=== PATIENT | male | born 1945 | race Caucasian/White ===

== ENCOUNTER → 2017-01-19 | Outpatient (CLI) | payer MEDICARE ==
[~2017-01-19] MED LIST: ACET-749 PO; ADVIN25/60 INH; ALLO300T2 PO; ASPI81TA28 PO; ATRIN INH; CALC600T9 PO; CARV25TA2 PO; CLC100 PO; CLOP1TAB15 PO; DTR5 PO; FRS/40 PO; GABA-113 PO; HYDR25TA4 PO; LINICRE TOP; LISI40TA PO; MCRK20 PO; MONT1TAB3 PO; NITR0.4S UT; OMEG10007 PO; OPTIRAY 320 IV PRN; SIMV40TA2 PO
--- NOTE | 2017-01-19 12:08 | DIAGNOSTIC IMAGING REPORT ---
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 COMPARISON STUDY: Abdominal CT dated 02/08/2016 and 01/07/2016. TECHNIQUE: Before and following the IV administration of 80 cc of Optiray 320, CT urogram of the abdomen and pelvis is performed from the lung bases to the proximal femora. Images are reviewed in the axial, sagittal, and coronal planes. IV contrast was administered without complication. CT DOSE: 2007.94 mGy.cm FINDINGS: Lung bases: The heart is normal in size and without pericardial effusion. The coronary arteries are densely calcified. Emphysema is observed. There is no airspace consolidation or pleural effusion. Foci of tree-in-bud nodularity are identified at the right lung base. There is a 10 mm right lower lobe pulmonary nodule seen on image #2 of the unenhanced series. A 3 mm nodule is seen at the left lung base on image #30. The left lower lobe nodule has been seen on prior studies. The right lower lobe nodule was not included on prior examinations. Liver: The contrast-enhanced liver is enlarged, measuring 20 cm in length. The liver demonstrates diffusely diminished attenuation consistent with hepatic steatosis. There is no intrahepatic biliary ductal dilatation. The hepatic veins and portal veins are patent. Gallbladder: Unremarkable. Spleen: Normal in size and attenuation. Pancreas: Unremarkable. Adrenal glands: A 2.1 cm right adrenal nodule meets CT criteria for a fat-containing adenoma. The left adrenal gland is normal in appearance. Kidneys and ureters: The right kidney and right ureter are surgically absent. The left kidney demonstrates mild cortical atrophy and is without hydronephrosis. The left kidney enhances and excretes homogeneously. There are no left renal calculi identified on the unenhanced images. There is a 1.6 cm indeterminant and partially exophytic lesion in the interpolar left kidney seen on image #192. This appears to demonstrate postcontrast enhancement. There is no evidence of urothelial lesion within the left renal pelvis or along the course of the left ureter. Abdominal vasculature: The abdominal aorta is normal in course and caliber noting advanced atherosclerotic calcification. Bowel: The small bowel and colon are normal in course and caliber. There is moderate colonic fecal retention. The appendix is well-visualized and normal. Peritoneum and retroperitoneum: There is no intraperitoneal free air or abdominal ascites. There is a 1.6 cm right retroperitoneal nodule seen on axial image #164. There is a small fat-containing umbilical hernia. Lymphadenopathy: None. Pelvic viscera: The bladder, prostate, and seminal vesicles are normal as imaged. There is a small fat-containing right inguinal hernia. Skeletal structures: The skeletal structures appear osteopenic. There is mild/moderate lumbosacral spondylosis. No lytic or blastic bony lesions are seen. IMPRESSION: 1. The right kidney and ureter are surgically absent. 2. There is an indeterminant 1.6 cm retroperitoneal nodule in the operative bed adjacent to the right adrenal gland. This was not seen previously and may represent postoperative change. A soft tissue implant is not excluded and attention at follow-up is recommended. 3. There is an indeterminant 1.6 cm cortical lesion in the left kidney which does not meet CT criteria for a simple cyst and appears to demonstrate postcontrast enhancement. The appearance is worrisome for neoplasm. At a minimum, attention at follow-up is recommended. Renal MRI could also be considered for further interrogation. 4. There is no evidence of urothelial lesion within the left renal pelvis, the left ureter, or the bladder. 5. Hepatomegaly and hepatic steatosis. 6. There is an indeterminant 10 mm right lower lobe pulmonary nodule. This was not included on prior abdominal CT scans. Follow-up with a chest CT is recommended for full assessment of the thorax. 7. Additional findings as above. Electronically signed by: Obdulio Whitt M.D. 01/19/2017 12:07 PM Dictated Date/Time: 01/19/2017 11:51 AM
== END | disposition home or self-care (01) ==
LOC: C.CTS 10:43
PROVIDERS: ATTEND Urology
DX: C67.9 Malignant neoplasm of bladder, unspecified (principal); C66.1 Malignant neoplasm of right ureter; Z90.5 Acquired absence of kidney; N28.9 Disorder of kidney and ureter, unspecified; R93.8 Abnormal findings on diagnostic imaging of other specified body structures; R16.0 Hepatomegaly, not elsewhere classified; K76.0 Fatty (change of) liver, not elsewhere classified; R91.1 Solitary pulmonary nodule

== ENCOUNTER → 2017-03-27 | Outpatient (CLI) | payer MEDICARE ==
[2017-03-27 11:24] LABS: BLOOD UREA NITROGEN 11 mg/dl (7-18); BUN/CREATININE RATIO 8.5 (10-20); CALCIUM 8.5 mg/dl (8.5-10.1); CARBON DIOXIDE 31 mmol/L (21-32); CHLORIDE 107 mmol/L (98-107); GLUCOSE 93 mg/dl (70-99); MAGNESIUM 2.2 mg/dl (1.8-2.4); SODIUM 144 mmol/L (136-145)
[2017-03-27 11:26] LABS: PHOSPHORUS 2.9 mg/dl (2.5-4.9)
[2017-03-27 12:44] LABS: BASO % 0.2 %; BASO ABS # 0.02 K/uL (0-0.2); COMPLETE YES; HEMATOCRIT 42.8 % (42-52); IG% 0.2 %; LYMPH % 24.9 %; MEAN CELL VOLUME 84.6 fL (80-100); MEAN CORPUSCULAR HEMOGLOBIN 29.1 pg (25-34); MEAN CORPUSCULAR HGB CONC 34.3 g/dl (32-36); MEAN PLATELET VOLUME 9.3 fL (7.4-10.4); NEUT % 66.7 %; PLATELET COUNT 195 K/uL (130-400); RED BLOOD COUNT 5.06 M/uL (4.7-6.1); WHITE BLOOD COUNT 8.04 K/uL (4.8-10.8)
[2017-03-27 12:46] LABS: URINE APPEARANCE CLEAR (CLEAR); URINE BILIRUBIN NEG (NEG); URINE COLOR YELLOW; URINE EPITHELIAL CELL AUTO 0-5 /lpf (0-5); URINE NITRITE NEG (NEG); URINE PH 7.5 (4.5-7.5); URINE SPECIFIC GRAVITY 1.012 (1.000-1.030); UROBILINOGEN NEG (NEG); ZZUR CULT IF INDIC CLEAN CATCH YES
--- NOTE | 2017-03-27 12:54 | DIAGNOSTIC IMAGING REPORT ---
CT UROGRAM CLINICAL HISTORY: Hematuria. 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 COMPARISON STUDY: Abdominal CT scans dated 01/19/2017, dated 02/08/2016, and 01/07/2016. TECHNIQUE: Before and following the IV administration of 80 cc of Optiray 320, CT urogram of the abdomen and pelvis is performed from the lung bases to the proximal femora. Additional portal venous phase images were acquired to better assess the renal cortex. Images are reviewed in the axial, sagittal, and coronal planes. IV contrast was administered without complication. CT DOSE: 3142.32 mGycm FINDINGS: Lung bases: The heart is normal in size and without pericardial effusion. The coronary arteries are densely calcified. Emphysema is observed. There is no airspace consolidation or pleural effusion. Chronic foci of tree-in-bud nodularity are identified at the right lung base with numerous tiny calcified granulomas. Liver: The contrast-enhanced liver is enlarged, measuring 20 cm in length. The liver demonstrates diffusely diminished attenuation consistent with hepatic steatosis. There is no intrahepatic biliary ductal dilatation. The hepatic veins and portal veins are patent. Gallbladder: Unremarkable. Spleen: Normal in size and attenuation. Pancreas: Unremarkable. Adrenal glands: A 2.1 cm right adrenal nodule meets CT criteria for a fat-containing adenoma. The left adrenal gland is normal in appearance. Kidneys and ureters: The right kidney and right ureter are surgically absent. The left kidney demonstrates mild cortical atrophy and is without hydronephrosis. The left kidney enhances and excretes homogeneously. There are no left renal calculi identified on the unenhanced images. No enhancing cortical mass is identified in the left kidney. Again seen is a 1.5 cm indeterminant and partially exophytic lesion in the interpolar left kidney seen on image #161. There is no clear evidence of postcontrast enhancement within this lesion which appears hyperdense on both the unenhanced and contrast-enhanced series. There is no evidence of urothelial lesion within the left renal pelvis or along the course of the left ureter. Abdominal vasculature: The abdominal aorta is normal in course and caliber noting advanced atherosclerotic calcification. Bowel: The small bowel and colon are normal in course and caliber. There is moderate colonic fecal retention. The appendix is well-visualized and normal. Peritoneum and retroperitoneum: There is no intraperitoneal free air or abdominal ascites. There is a 1.6 cm right retroperitoneal nodule seen on axial image #142. There is a small fat-containing umbilical hernia. Lymphadenopathy: None. Pelvic viscera: The bladder, prostate, and seminal vesicles are normal as imaged. There is a small fat-containing right inguinal hernia. Fluid is noted along the left internal canal. Skeletal structures: The skeletal structures appear osteopenic. There is mild to moderate lumbosacral spondylosis. No lytic or blastic bony lesions are seen. IMPRESSION: 1. The right kidney and ureter are surgically absent. 2. Again seen is an indeterminant 1.6 cm retroperitoneal nodule in the operative bed adjacent to the right adrenal gland. This is unchanged from 01/19/2017 and is new from 01/07/2016. Although this may represent postoperative change, and a soft tissue implant is not excluded and continued attention at follow-up is recommended. 3. Again seen is a 1.6 cm cortical lesion in the interpolar left kidney which does not meet CT criteria for a simple cyst. There is no clear postcontrast enhancement on today's examination, and this likely represents a complex cyst. The enhancement suggested within this lesion on 01/19/2017 is no longer apparent. Continued attention at follow-up is recommended. 4. There is no evidence of urothelial lesion within the left renal pelvis, the left ureter, or the bladder. 5. Hepatomegaly and mild hepatic steatosis. 6. Additional findings as above. Electronically signed by: Obdulio Whitt M.D. 03/27/2017 12:53 PM Dictated Date/Time: 03/27/2017 12:37 PM
[2017-03-27 12:56] LABS: MANUAL MICROSCOPIC REQUIRED? NO; REVIEW REQ? NO
[2017-03-27 14:00] LABS: URINE PROTIEN/CREAT RATIO 0.2 (0-0.2); URINE TOTAL PROTEIN 7.9 mg/dl (0-11.9)
--- NOTE | 2017-03-31 10:14 | CODING QUERY MEDICAL NECESSITY ---
SUPPORTING DIAGNOSIS NEEDED Dr. Lynch, A supporting diagnosis is required for the test/procedure performed on this patient in order for us to be reimbursed by the patient's insurance. Please provide a supporting diagnosis for the following test/procedure listed below next to the test name along with your signature. *If there is no additional diagnosis for this patient that would support the following test/procedure please document that below next to the test/procedure. Test(s)/Procedure(s) that require a supporting diagnosis: * ([id number]) VITAMIN D ASSAY DIAGNOSIS: DATE OF SERVICE: 03/27/17 Provider Signature: Date: Thank you Fabian Berry [facility] Information Management Once completed, please kindly fax back to [phone] For questions please call [phone]
== END | disposition home or self-care (01) ==
LOC: C.CTS 10:25
PROVIDERS: ATTEND Urology
DX: C67.9 Malignant neoplasm of bladder, unspecified (principal); D49.59 Neoplasm of unspecified behavior of other genitourinary organ; R31.9 Hematuria, unspecified; I12.9 Hypertensive chronic kidney disease with stage 1 through stage 4 chronic kidney disease, or unspecified chronic kidney disease; N18.9 Chronic kidney disease, unspecified; Z12.5 Encounter for screening for malignant neoplasm of prostate; Z90.5 Acquired absence of kidney; R73.09 Other abnormal glucose; N28.9 Disorder of kidney and ureter, unspecified; R16.0 Hepatomegaly, not elsewhere classified

== ENCOUNTER → 2017-10-09 | Outpatient (CLI) | payer MEDICARE ==
--- NOTE | 2017-10-09 12:09 | DIAGNOSTIC IMAGING REPORT ---
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 COMPARISON STUDY: 03/27/2017 TECHNIQUE: Unenhanced images were obtained to the abdomen and pelvis. The patient was injected with 50 cc of Optiray 320. After 5 minute delay, the patient is rescanned in a dynamic helical fashion during the additional administration of 43 cc of Optiray 320. A dose lowering technique was utilized adhering to the principles of ALARA. CT DOSE: 2437.72 mGycm FINDINGS: Lower chest: There is bibasilar atelectasis/subpleural reticulation. Liver: The contrast-enhanced liver is normal in size, contour, and attenuation. There is no intrahepatic biliary ductal dilatation. The hepatic veins and portal veins are patent. Gallbladder: Unremarkable. Spleen: Normal in size and attenuation. Pancreas: Unremarkable. Adrenal glands: There is a stable right adrenal gland nodule. This is producing felt to represent an adenoma. Kidneys: The right kidney is surgically absent. There is a stable 14 mm retroperitoneal nodule in the region of the operative bed. There is a 14 mm mass involving the interpolar region of the left kidney. This does not enhance and likely represents a hyperdense cyst. No collecting system or ureteral lesions are visualized. Bowel: There are no transition zones indicate bowel obstruction. There is no evidence of acute diverticulitis. There is no evidence of acute appendicitis. Peritoneum: There is no intraperitoneal free air or abdominal ascites. There is small fat-containing right inguinal hernia Vasculature: The abdominal aorta is normal in course and caliber. Adenopathy: None. Pelvic viscera: The bladder, and pelvic viscera are unremarkable. Skeletal structures: No destructive osseous lesions are seen. IMPRESSION: 1. Surgically absent right kidney and ureter 2. Stable 14 mm soft tissue right retroperitoneal nodule in the region of the right renal upper bed. 3. Stable 14 mm left renal hyperdense cyst 4. No uroepithelial lesions identified 5. No evidence of pathologic adenopathy Electronically signed by: Oscar Mercer M.D. 10/09/2017 12:08 PM Dictated Date/Time: 10/09/2017 12:00 PM
== END | disposition home or self-care (01) ==
LOC: C.CTS 10:47
PROVIDERS: ATTEND Urology
DX: C66.1 Malignant neoplasm of right ureter (principal); C67.9 Malignant neoplasm of bladder, unspecified; N28.1 Cyst of kidney, acquired; Z90.5 Acquired absence of kidney; Z90.6 Acquired absence of other parts of urinary tract